=== PATIENT | male | born 1970 | race Caucasian/White ===

== ENCOUNTER 2018-02-02 09:17 | Emergency (ER) | payer BC ==
--- NOTE | 2018-02-02 10:00 | UC ---
General HPI - HPI Summary HPI Summary: found a tick on R inner thigh this am. removed it. no fever, rash, joint pain. - History of Current Complaint Stated Complaint: TICK RIGHT LEG Time Seen by Provider: 02/02/18 09:53 Hx Obtained From: Patient Timing: Constant Associated Signs & Symptoms: Negative: Fever - Allergy/Home Medications Allergies/Adverse Reactions: Allergies Allergy/AdvReac Type Severity Reaction Status Date / Time amoxicillin Allergy Difficulty Verified 02/02/18 10:03 Breathing Penicillins Allergy Difficulty Verified 02/02/18 10:03 Breathing bee stings Allergy Swelling Uncoded 02/02/18 10:03 Of Face,Lips,& Throat seasonal allergies Allergy Congestion Uncoded 02/02/18 10:03 PMH/Surg Hx/FS Hx/Imm Hx Previously Healthy: Yes - Surgical History Surgical History: Yes Surgery Procedure, Year, and Place: fingers, arms fxs, left femur artery repair - Family History Known Family History: Positive: Hypertension - Social History Occupation: Employed Full-time Alcohol Use: Occasionally Substance Use Type: None Smoking Status (MU): Never Smoked Tobacco - Immunization History Vaccination Up to Date: Yes Review of Systems Constitutional: Negative Skin: Negative Eyes: Negative ENT: Negative Respiratory: Negative Cardiovascular: Negative Gastrointestinal: Negative Genitourinary: Negative Motor: Negative Neurovascular: Negative Musculoskeletal: Negative Neurological: Negative Psychological: Negative Is Patient Immunocompromised?: No All Other Systems Reviewed And Are Negative: Yes Physical Exam Triage Information Reviewed: Yes Appearance: Well-Appearing Vital Signs Reviewed: Yes Eyes: Positive: Conjunctiva Clear ENT: Positive: Normal ENT inspection Neck: Positive: Supple, Nontender, No Lymphadenopathy Respiratory: Positive: Lungs clear, Normal breath sounds Cardiovascular: Positive: RRR, No Murmur Abdomen Description: Positive: Nontender, No Organomegaly, Soft Bowel Sounds: Positive: Present Musculoskeletal: Positive: ROM Intact Neurological: Positive: Alert Psychological: Positive: Age Appropriate Behavior Skin Exam: Normal, Other - abrasion R inner thigh where tick removed, no rash. Course/Dx - Course Course Of Treatment: site of bite cleaned by myself. duration of bite uncertain. - Differential Dx - Multi-Symptom Provider Diagnoses: tick bite R thigh Discharge - Sign-Out/Discharge Documenting (check all that apply): Discharge/Admit/Transfer - Discharge Plan Condition: Stable Disposition: HOME Prescriptions: DOXYcycline CAP(*) [DOXYcycline 100MG CAP(*)] 200 mg PO DAILY #2 cap Patient Education Materials: Tick Bite (ED) Referrals: GER Muirllo [Primary Care Provider] - If Needed - Billing Disposition and Condition Condition: STABLE Disposition: HOME
[2018-02-02 10:01] VITALS: BP 138/92
== END 2018-02-02 10:18 | disposition home or self-care (01) ==
LOC: UCCORT 09:17
DX: S70.361A Insect bite (nonvenomous), right thigh, initial encounter (principal); W57.XXXA Bitten or stung by nonvenomous insect and other nonvenomous arthropods, initial encounter; Y93.9 Activity, unspecified; Y92.9 Unspecified place or not applicable; Z88.0 Allergy status to penicillin; Z91.030 Bee allergy status
CPT/HCPCS: 99212; G0463

== ENCOUNTER 2019-06-28 09:13 | Emergency (ER) | payer BC, OTHER ==
[2019-06-28 09:47] VITALS: BP 155/90
--- NOTE | 2019-06-28 09:50 | UC ---
LATRICE General HPI - HPI Summary HPI Summary: pt works as a manual lathe machinist and got metal shavings in his R index finger through a glove on Friday. he was able to pull some shavings out over the weekend. now, the palm side of the finger is swollen and painful. no limited rom, f/c's or streaking but pain radiates into the forearm. last tetanus is not know. no other complaints. - History of Current Complaint Stated Complaint: RT FINGER COMP Time Seen by Provider: 06/28/19 09:42 Hx Obtained From: Patient Onset/Duration: Gradual Onset Timing: Constant - Allergy/Home Medications Allergies/Adverse Reactions: Allergies Allergy/AdvReac Type Severity Reaction Status Date / Time amoxicillin Allergy Hives Verified 06/28/19 09:40 bee venom protein (honey bee) Allergy Swelling Verified 06/28/19 09:40 Of Face,Lips,& Throat Penicillins Allergy Hives Verified 06/28/19 09:40 seasonal allergies Allergy Congestion Uncoded 06/28/19 09:40 Home Medications: Home Medications Acetaminophen [Acetaminophen Extra Strength] 1,000 mg PO Q6H PRN 06/28/19 [ History Confirmed 06/28/19] PMH/Surg Hx/FS Hx/Imm Hx Previously Healthy: Yes - Surgical History Surgical History: Yes Surgery Procedure, Year, and Place: fingers, arms fxs, left femur artery repair - Family History Known Family History: Positive: Hypertension - Social History Occupation: Employed Full-time Alcohol Use: Occasionally Substance Use Type: None Smoking Status (MU): Never Smoked Tobacco - Immunization History Most Recent Tetanus Shot: Unsure UTD? Vaccination Up to Date: Yes Review of Systems All Other Systems Reviewed And Are Negative: No Constitutional: Negative: Fever, Chills Musculoskeletal: Negative: Decreased ROM Neurological: Negative: Weakness, Paresthesia, Numbness Physical Exam Triage Information Reviewed: Yes Appearance: Well-Appearing Vital Signs Reviewed: Yes Cardiovascular: Positive: RRR Musculoskeletal: Positive: Other: - R hand: volar index finger with mild swelling, tiny PW's and slight erythema over mid phalanx. volar surface is slightly tender over middle phalanx. active / passive ROM is intact. rest or hand unremarkable except an old scar. gross s/v/m is intact per his baseline. No streaking or adenopathy. Neurological: Positive: Alert Psychological: Positive: Age Appropriate Behavior Skin Exam: Normal Diagnostics - Radiology No standard instances Radiology Interpretation Completed By: Radiologist - IMPRESSION: SOFT TISSUE SWELLING AND VERY SMALL METALLIC FOREIGN BODIES IN OR ON THE SOFT TISSUES. Course/Dx - Course Course Of Treatment: hx, PE and xray d/w Dr oCx. she agrees with tx Clindamycin and she will recheck this Friday. - Differential Dx - Multi-Symptom Differential Diagnoses: Other - no flexortenosynovitis. + tiny specs FB's. - Diagnoses Provider Diagnosis: Finger infection, Foreign body finger Discharge ED - Sign-Out/Discharge Documenting (check all that apply): Patient Departure All imaging exams completed and their final reports reviewed: Yes - Discharge Plan Condition: Stable Disposition: HOME Prescriptions: Clindamycin Cap(NF) [Clindamycin Cap 300 mg Cap(NF)] 300 mg PO Q6H 10 Days #40 cap Patient Education Materials: Cellulitis (DC), Soft Tissue Foreign Body (ED) Forms: *Work Release Referrals: Beatriz Cox MD [Medical Doctor] - Additional Instructions: CALL TODAY TO BE SEEN THIS COMING FRIDAY PER DR COX. SOAK THE DIGIT IN WARM SOAPY WATER FOR 15 MINUTES TWICE DAILY. FOLLOW UP/CALL SOONER FOR ANY WORSENING. - Billing Disposition and Condition Condition: STABLE Disposition: Home
[2019-06-28] MEDS ORDERED: Tetan/Diph/Pertus SYR(Tdap)* 0.5 ML SYR(BOOSTRIX) use SYR contains LATEX IM ONE (09:54)
[2019-06-28] MEDS ORDERED: Ibuprofen ADULT LIQ* 600 MG/30 ML UDC PO ONE (09:54)
== END 2019-06-28 10:59 | disposition home or self-care (01) ==
LOC: UCCORT 09:13
DX: S61.240A Puncture wound with foreign body of right index finger without damage to nail, initial encounter (principal); L08.9 Local infection of the skin and subcutaneous tissue, unspecified; X58.XXXA Exposure to other specified factors, initial encounter; Y93.89 Activity, other specified; Y92.89 Other specified places as the place of occurrence of the external cause; Y99.0 Civilian activity done for income or pay; Z23 Encounter for immunization; Z88.0 Allergy status to penicillin
CPT/HCPCS: 73140; 90471; 90715; 99212; A9270-GY; G0463

== ENCOUNTER 2019-08-12 21:31 | Emergency (ER) | payer BC, OTHER ==
--- OUTSIDE RECORDS SUMMARY | 2019-08-12 21:38 | XMS REPORT | Continuity of Care Document ---
:1970 External Reference #:[id number] Author Name Beatriz Shoemaker M.D. (transmitted by agent of provider Pinky Lorenzo) Address [address] [place] [address] Care Team Providers Name Role Phone [facility] - Care Team Information [facility] Problems Description No Information Available Social History Type Date Description Comments Sex Unknown ETOH Use Currently consumes alcohol 1-2 per week Tobacco Use Start: Unknown Patient has never smoked Smoking Status Reviewed: 06/30/19 Patient has never smoked Exercise Type/Frequency Exercises regularly hiking Allergies, Adverse Reactions, Alerts Active Allergies Reaction Severity Comments Date Penicillin 06/30/2019 Medications Active Medications SIG Qnty Indications Ordering Provider Date Clindamycin HCL 1 tablet by mouth Unknown 300mg three times per Capsules day Immunizations Description No Information Available Vital Signs Date Vital Result Comment 06/30/2019 1:53pm Height 73 inches 6'1" Weight 196.00 lb Heart Rate 68 /min BP Systolic 144 mmHg BP Diastolic 96 mmHg Body Temperature 97.9 F Pain Level 4 BMI (Body Mass Index) 25.9 kg/m2 07/03/2018 2:10pm Weight 191.00 lb Heart Rate 64 /min BP Systolic 138 mmHg BP Diastolic 96 mmHg BP Systolic Sitting 130 mmHg BP Diastolic Sitting 90 mmHg Respiratory Rate 16 /min Body Temperature 98.6 F Pain Level 0 O2 % BldC Oximetry 97 % Ra Results Description No Information Available Procedures Description No Information Available Medical Devices Description No Information Available Encounters Description No Information Available Assessments Date Code Description Provider 06/30/2019 S61.240A Puncture wound with foreign body of right Beatriz Shoemaker M.D. index finger without damage to nail, initial encounter Plan of Treatment 06/30/2019 - Beatriz Shoemaker M.D.S61.240A Puncture wound with foreign body of right index finger without damage to nail, initial encounterFollow up:Follow up : As needed Functional Status Description No Information Available Mental Status Description No Information Available Referrals Description No Information Available
[2019-08-12 21:42] VITALS: BP 152/110
--- NOTE | 2019-08-12 21:52 | UC ---
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 He awoke with severe pain last night such that he could not sleep despite the use of acetaminophen and ibuprofen alternately. Has not seen a dentist in 10 years, states no hot or cold sensitivity, but does have pre-auricular swelling and swelling along the jaw line. Non-smoker, denies significant alcohol intake. - History of Current Complaint Chief Complaint: UCGeneralIllness Stated Complaint: SWOLLEN GLANDS, RT EAR PAIN Time Seen by Provider: 08/12/19 21:37 Hx Obtained From: Patient Onset/Duration: Gradual Onset, Lasting Weeks Severity Initially: Mild Severity Currently: Moderate Pain Intensity: 7 Aggravating Factors: Nothing Alleviating Factors: OTC Meds Associated Signs/Symptoms: Positive: Swelling @ - right preauricular area.. Negative: Trauma to Ear - Allergies/Home Medications Allergies/Adverse Reactions: Allergies Allergy/AdvReac Type Severity Reaction Status Date / Time amoxicillin Allergy Hives Verified 08/12/19 21:37 bee venom protein (honey bee) Allergy Swelling Verified 08/12/19 21:37 Of Face,Lips,& Throat Penicillins Allergy Hives Verified 08/12/19 21:37 seasonal allergies Allergy Congestion Uncoded 08/12/19 21:37 Home Medications: Home Medications Ibuprofen TAB* [Advil TAB*] 2 tab PO ONCE 08/12/19 [History Confirmed 08/12/19] PMH/Surg Hx/FS Hx/Imm Hx Previously Healthy: Yes - denies hx of hypertension - Surgical History Surgical History: Yes Surgery Procedure, Year, and Place: fingers, arms fxs, left femur artery repair - Family History Known Family History: Positive: Hypertension - father, Other - GM of stroke age 92 Negative: Cardiac Disease, Diabetes - Social History Occupation: Employed Full-time Alcohol Use: Occasionally Substance Use Type: None Smoking Status (MU): Never Smoked Tobacco - Immunization History Most Recent Tetanus Shot: Unsure UTD? Vaccination Up to Date: Yes Review of Systems All Other Systems Reviewed And Are Negative: Yes Constitutional: Positive: Fatigue, Other - no night sweats or weight loss. Skin: Positive: Negative Eyes: Negative: Blurred Vision, Photophobia ENT: Positive: Sore Throat, Ear Ache Respiratory: Negative: Shortness Of Breath, Cough Cardiovascular: Negative: Palpitations, Chest Pain Gastrointestinal: Negative: Abdominal Pain, Vomiting, Diarrhea Genitourinary: Positive: Negative Motor: Positive: Negative Neurovascular: Positive: Negative Physical Exam Triage Information Reviewed: Yes Appearance: Ill-Appearing - looks fatigued. Vital Signs: Initial Vital Signs Temp 97.4 F 08/12/19 21:38 Pulse 61 08/12/19 21:38 Resp 16 08/12/19 21:38 BP 152/110 08/12/19 21:38 Pulse Ox 99 08/12/19 21:38 Eyes: Positive: Conjunctiva Inflamed - bilaterally ENT: Positive: Pharyngeal erythema, TM dull - mild retraction on the right.. Negative: Tonsillar swelling, Tonsillar exudate, Hoarse voice, Dental tenderness , Sinus tenderness Dental Exam: Other - Cheek with fullness but no discrete masses. Dental: Positive: Other: - mild gum inflammation, #29 absent, no gross decay visible.. Negative: Percussion Tenderness @, Gross Decay/Caries @ Neck: Positive: Supple, Tenderness @ - tenderness from the right pre-auricular area across the angle of the jaw to the right sternomastoid. + erythema, but not warm. Diffuse firm swelling without discrete nodes palplable., Enlarged Nodes @ - submandibular., Other: - Normal non-tender thyroid. Respiratory: Positive: Lungs clear, Normal breath sounds Cardiovascular: Positive: RRR, No Murmur, Pulses Normal Musculoskeletal Exam: Normal Neurological Exam: Normal Psychological Exam: Normal Skin Exam: Other - diffuse erythema of the preauricular area with tenderness in the soft tissues. No appearance typical of erythema migrans rash. Images Dental: 1 - absent 2 - inflammation at gum line #30 Ear Complaint Course/Dx - Course Course Of Treatment: soft tissue infection with a possible dental source is the first consideration. The right cervical area is diffusely swollen and tender, without definitive nodes palpable. Advised follow up needed. Additionally, blood pressures have reached hypertensive range at his visits here , the only physician visits which he has. Will begin clindamyin as it will pari a dental source, draw labs, refer to [facility] for follow up. - Differential Dx/Diagnosis Provider Diagnosis: Cellulitis and abscess of face Discharge ED - Sign-Out/Discharge Documenting (check all that apply): Patient Departure All imaging exams completed and their final reports reviewed: No Studies - Discharge Plan Condition: Stable Disposition: HOME Prescriptions: Clindamycin Cap(NF) [Clindamycin Cap 300 mg Cap(NF)] 300 mg PO QID #28 cap Patient Education Materials: Cellulitis (ED) Referrals: [facility] [Outside] No Primary Care Phys,NOPCP [Primary Care Provider] - Additional Instructions: Your blood pressure readings at your last convenient care visits have been elevated--last month and this month to 150 systolic. It is possible that you need treatment. I have referred you to the [facility] for follow up because you do not have a primary care, and also to the the referral service to help you for find a primary doctor. Please call the [facility] to arrange an evaluation for early next week. You have been prescribed clindamycin for treatment of suspected soft tissue infection, possible due to a dental infection. Continue use of acetaminophen and ibuprofen for control of pain. Lab work has been done to check on your white blood count and to check for Lyme disease due to your history of tick exposure. - Billing Disposition and Condition Condition: STABLE Disposition: Home
[2019-08-12] MEDS ORDERED: Ibuprofen TAB* 400 MG PO ONE (22:02)
[2019-08-12] MEDS ORDERED: Clindamycin CAP* 150 MG PO ONE (22:02)
[2019-08-13 11:52] LABS: Hematocrit 52 % (42-52); Hemoglobin 17.5 g/dL (14.0-18.0); Mean Corpuscular HGB Conc 34 g/dL (31-36); Mean Corpuscular Hemoglobin 28 pg (27-31); Mean Corpuscular Volume 84 fL (80-94); Mean Platelet Volume 9.2 fL (7.4-10.4); Platelet Count 144 10^3/uL (150-450); Red Blood Count 6.16 10^6 /uL (4.18-5.48); Red Cell Distribution Width 14 % (10-15); White Blood Count 7.4 10^3/uL (3.5-10.8)
[2019-08-13 12:02] LABS: Albumin 4.8 g/dL (3.2-5.2); Albumin/Globulin Ratio 1.8 (1-3); BUN/Creatinine Ratio 12.2 (8-20); Calcium 9.7 mg/dL (8.6-10.3); EGFR African American 109.4 (>60); EGFR Non-African American 90.4 (>60); Globulin 2.6 g/dL (2-4); Potassium 4.2 mmol/L (3.5-5.0); Total Bilirubin 0.5 mg/dL (0.2-1.0); Total Protein 7.4 g/dL (6.4-8.9)
== END 2019-08-12 22:25 | disposition home or self-care (01) ==
LOC: UCCORT 21:31
DX: L03.211 Cellulitis of face (principal); L02.01 Cutaneous abscess of face; K05.10 Chronic gingivitis, plaque induced; R59.0 Localized enlarged lymph nodes; Z88.0 Allergy status to penicillin; Z91.09 Other allergy status, other than to drugs and biological substances; Z91.030 Bee allergy status
CPT/HCPCS: 36415; 80053; 85025; 86618; 99212; A9270-GY; G0463

== ENCOUNTER 2019-12-13 15:06 | Emergency (ER) | payer BC ==
[2019-12-13 16:25] VITALS: BP 146/98
--- NOTE | 2019-12-13 16:38 | UC ---
Respiratory Complaint HPI - HPI Summary HPI Summary: 49-year-old male who has had cough and cold symptoms for 8 days. He is a nonsmoker. He nonproductive cough. He did have some sinus pressure and blowing his nose but that has improved. The patient states he has no family history of parents or siblings that have had heart attacks before the age of 50 or any heart problems. The patient himself has no heart problems. He does have fluctuating elevated blood pressure however he does not take medication for that. - History of Current Complaint Chief Complaint: UCRespiratory Stated Complaint: CONGESTION Time Seen by Provider: 12/13/19 15:55 Hx Obtained From: Patient Onset/Duration: Gradual Onset, Lasting Days Timing: Intermittent Episodes Severity Initially: Mild Severity Currently: Mild Pain Intensity: 2 Character: Cough: Nonproductive Aggravating Factors: Deep Breaths Alleviating Factors: Nothing Associated Signs And Symptoms: Positive: URI, Nasal Congestion - Allergies/Home Medications Allergies/Adverse Reactions: Allergies Allergy/AdvReac Type Severity Reaction Status Date / Time amoxicillin Allergy Hives Verified 12/13/19 16:26 bee venom protein (honey bee) Allergy Swelling Verified 12/13/19 16:26 Of Face,Lips,& Throat Penicillins Allergy Hives Verified 12/13/19 16:26 avoids acetaminophen Allergy GI Upset Uncoded 12/13/19 16:28 seasonal allergies Allergy Congestion Uncoded 12/13/19 16:26 Home Medications: Home Medications Ibuprofen TAB* [Advil TAB*] 4 tab PO DAILY PRN 08/12/19 [History Confirmed 12/12] PMH/Surg Hx/FS Hx/Imm Hx Previously Healthy: Yes - Surgical History Surgical History: Yes Surgery Procedure, Year, and Place: fingers, arms fxs, left femur artery repair - Family History Known Family History: Positive: Hypertension - father, Other - GM of stroke age 92 Negative: Cardiac Disease, Diabetes - Social History Occupation: Employed Full-time Alcohol Use: Occasionally Substance Use Type: None Smoking Status (MU): Never Smoked Tobacco - Immunization History Most Recent Tetanus Shot: Unsure UTD? Vaccination Up to Date: Yes Review of Systems All Other Systems Reviewed And Are Negative: Yes ENT: Positive: Nasal Discharge, Sinus Congestion Respiratory: Positive: Cough Is Patient Immunocompromised?: No Physical Exam Triage Information Reviewed: Yes Appearance: Well-Appearing, No Pain Distress, Well-Nourished Vital Signs: Initial Vital Signs Temp 98.8 F 12/13/19 15:56 Pulse 74 12/13/19 15:56 Resp 18 12/13/19 15:56 BP 146/98 12/13/19 15:56 Pulse Ox 99 12/13/19 15:56 Vital Signs Reviewed: Yes Eyes: Positive: Conjunctiva Clear ENT: Positive: Pharynx normal, Nasal drainage - Clear nasal coryza, TMs normal, Uvula midline Neck: Positive: Supple, Nontender, No Lymphadenopathy Respiratory: Positive: Lungs clear, Normal breath sounds, No respiratory distress, No accessory muscle use Cardiovascular: Positive: RRR, No Murmur, Pulses Normal, Brisk Capillary Refill Musculoskeletal Exam: Normal Neurological Exam: Normal Psychological Exam: Normal Skin Exam: Normal Respiratory Course/Dx - Course Course Of Treatment: Rapid flu test: Negative Chest x-ray:FINDINGS: The heart and mediastinum are normal in size and contour. The lungs are grossly clear. There is no evidence of large pleural effusion. Visualized bones are normal for the patient's age. There is no radiographic evidence of free air beneath the diaphragm IMPRESSION: No radiographic evidence of acute cardiopulmonary disease. The patient is comfortable here and nontoxic. He states that he is feeling much better today. We did discuss the possibility of needing to go to the emergency room if he has any worsening symptoms and he is in agreement with that. - Differential Dx/Diagnosis Provider Diagnosis: URI (upper respiratory infection), Flu-like symptoms Discharge ED - Sign-Out/Discharge Documenting (check all that apply): Patient Departure All imaging exams completed and their final reports reviewed: Yes - Discharge Plan Condition: Good Disposition: HOME Patient Education Materials: Upper Respiratory Infection (ED) Forms: *Gen. Provider Communication Referrals: Manuel Jameson MD [Primary Care Provider] - Additional Instructions: Increase fluids, follow-up with your primary care provider if no improvement in 4-5 days. If you develop any worsening chest pain, chest pressure, indigestion , radiation of pain or pressure, you are to call 911 and go to the emergency room. - Billing Disposition and Condition Condition: GOOD Disposition: Home - Attestation Statements Provider Attestation: I was available for consultation for this patient. I did not evaluate the patient or participate in any medical decision making or disposition decisions unless I am specifically named in the chart as having consulted on the patient. If I have consulted on the patient, please see my own ED note on the patient encounter. Janae Vargas MD
[2019-12-13 16:49] LABS: Influenza A Molecular Negative (Negative); Influenza B Molecular Negative (Negative)
== END 2019-12-13 17:09 | disposition home or self-care (01) ==
LOC: UCCORT 15:06
DX: J06.9 Acute upper respiratory infection, unspecified (principal); Z91.09 Other allergy status, other than to drugs and biological substances; Z88.0 Allergy status to penicillin; Z91.030 Bee allergy status; Z88.6 Allergy status to analgesic agent
CPT/HCPCS: 71046; 93005; 99211; G0463